=== PATIENT | female | born 1995 | race Caucasian/White ===

== ENCOUNTER 2018-02-14 07:49 | Emergency (ER) | payer OTHER, SELFPAY ==
[2018-02-14 07:49] VITALS: BP 124/71; PULSE 74; RESP 16; TEMP 36.8; O2SAT 99; BMI 20.7
--- NOTE | 2018-02-14 08:11 | CT_ITS ---
STUDY: CT ABDOMEN AND PELVIS WITH CONTRAST REASON FOR EXAM: Female, 22 years old. 24 hour history of right lower quadrant pain. RADIATION DOSAGE (If Supplied By Facility): CTDIvol = ( 10.22 ) mGy, DLP = ( 316.3 ) mGycm TECHNIQUE: Transaxial images were obtained from the dome of the diaphragm to the symphysis pubis without oral contrast. 100 ml of Isovue 300 contrast was administered. Sagittal and coronal images were reconstructed. Individualized dose optimization techniques were used for this CT. COMPARISON: None. FINDINGS: The visualized lung bases are unremarkable. The visualized portions of the heart are within normal limits. Normal liver. Normal gallbladder and extrahepatic biliary system. Normal spleen. Normal pancreas. Normal bilateral adrenal glands. Normal right kidney. Normal left kidney. Normal visualized stomach. Normal small intestine. Normal colon. The appendix is visualized and appears normal. The appendix is visualized on axial images 76 through 79. Small lymph nodes are seen in the mesentery in the right lower quadrant suggestive of mesenteric adenitis. Normal abdominal aorta. Normal inferior vena cava. Normal retroperitoneum. Normal urinary bladder. Small follicles in both ovaries. Normal abdominal wall. Normal osseous structures. CT/Abdomen/Pelvis W IV Cont ONLY IMPRESSION: Findings suggest some mesenteric lymphadenitis. Electronically Signed: Martín Todd MD at 10:02 EDT Tel [phone], Service support ,
--- NOTE | 2018-02-14 08:18 | ED.DCSUM_ITS ---
- ER Visit Summary Date of Service: 02/14/18 Chief Complaint: Right lower quadrant abdominal pain History of Present Illness: The patient is a 22 F past medical or surgical history. Currently on no medications. Patient states last evening around 9 PM she started having right lower quadrant abdominal pain. Associated nausea but no vomiting. No diarrhea or fever. No constipation or dysuria. She has had some mild chills. Currently she is on her menstrual cycle. Denies any discharge.. No trauma. No history of similar pain. Physical Examination: Well-appearing young female. Vital signs are stable and afebrile. She does not look septic or toxic. She is not dehydrated. H EENT exam unremarkable. Lungs clear to auscultation bilaterally. Heart regular rhythm no murmur. Abdomen is soft. Nondistended normal bowel sounds. No hernias or masses. Mild tenderness with deep palpation in the right lower quadrant. Both the right upper and left side of the abdomen are unremarkable. Currently no peritoneal signs. Positive bowel sounds. Moving all 4 extremities. Back nontender. Neurologically awake alert with no focal deficits. Test Results: CBC normal white count of 8. Chemistries normal. UA normal. Serum test negative. CT abdomen pelvis was done with IV contrast only the appendix is visualized and appears normal. There is mesenteric adenitis. Read by the radiologist and reviewed by me. Emergency Department Course and Treatment: Patient with abdominal pain in the right lower quadrant. Differential would include appendicitis versus UTI but she has no urinary symptoms. Also could be secondary to her menstrual cycle or an ovarian cyst. Clinically I do not feel this is a kidney stone. Currently patient does not want any medications for pain or nausea. On repeat exam patient is doing well at 10:10 AM. Abdomen is benign. She denied discussed all test results that she is comfortable being discharged home. Treatment Plan: Tylenol and/or Motrin for pain. Return if feeling worse. Disposition: Charge Impression: Acute right lower quadrant abdominal pain secondary to mesenteric adenitis This note was generated with [employer] dictation software. It may contain incorrect words, spelling, and punctuation that were not noted in review of the chart prior to signing ED Disposition - Plan for ED Patient: Chief Complaint: Abd Pain Referrals: [facility] Doctor,Out of [Primary Care Provider] -
[2018-02-14 08:46] LABS: Bacteria 0 SEEN /hpf (None Seen); Mucous, Urine 0 SEEN /hpf (<or=2+); White Blood Cells 0 SEEN /hpf (0-5)
[2018-02-14 08:47] LABS: Color, Urine Yellow (Yellow); Glucose, Dipstick Normal (Normal); Ketone-Dipstick Negative (Negative); Leukocyte Esterase-Dipstick Negative /ul (Negative); Nitrite-Dipstick Negative (Negative); Occult Blood-Urine 10 /ul (Negative); Protein-Dipstick Negative (Negative); Specific Gravity, Urine 1.005 (1.002-1.030); Urine Bilirubin Dipstick Negative (Negative); Urine Clarity Clear (Clear); Urine Urobilinogen Normal (Normal)
[2018-02-14] MEDS: 0.9% Normal Saline 1,000 ML 1000 ML IV (08:51)
[2018-02-14 08:56] LABS: Absolute Lymphocyte Count 0.78 X10^3/ul (0.83-4.51); Absolute Neutrophil Count 6.9 X10^3/uL (2.0-7.7); Basophil# 0.01 X10^3/uL; Basophil% 0.1 % (0-1); Eosinophil# 0.02 X10^3/uL; Eosinophils% 0.2 % (0-5); Hematocrit 38.5 % (37-47); Hemoglobin 12.9 g/dl (12.0-15.0); Lymphocyte # 0.78 X10^3/ul (4.0); Lymphocyte % 9.6 % (19-41); Mean Corp Hgb Conc 33.5 g/gl (32-36); Mean Corpuscular Hgb 27.8 pg (27.0-32.0); Mean Platelet Vol. 9.6 fl (6.2-12.0); Monocyte# 0.36 X10^3/uL; Monocyte% 4.4 % (0-10); Neutrophil # 6.94 X10^3/uL (2.7-7.7); Neutrophil % 85.6 % (47-70); Platelet Count 213 K/mm3 (150-450); RBC Distribution Width CV 13.3 % (11.6-14.6); RBC Distribution Width SD 40.4 fl (35.1-43.9); Red Blood Count 4.64 M/mm3 (4.2-5.4); White Blood Count 8.1 K/mm3 (4.4-11.0)
[2018-02-14 08:59] LABS: Anion Gap 10 (5-15); BUN 11 mg/dL (7-18); BUN/Creat Ratio 12.8 RATIO (10-20); Calcium,Total 8.8 mg/dL (8.5-10.1); Chloride 106 mmol/L (98-107); Creatinine, Serum 0.86 mg/dL (0.55-1.02); EST Glomerular Filtration Rate 89 mL/min (>60); Est Glom Filt Rate - Afr Amer 108 mL/min (>60); Estimated Creatinine Clearance 78.74 ml/min; Glucose 90 mg/dL (74-106); POSITIVE COUNT NO; POSITIVE DIFFERENTIAL NO; POSITIVE MORPHOLOGY NO; Potassium 3.8 mmol/L (3.5-5.1); Sodium Level 142 mmol/L (136-145)
[2018-02-14 09:02] LABS: Red Blood Cells-Urine 0-5 SEEN /hpf (0-5); Squamous Epithelial Cells - UA 0-5 SEEN /hpf (5-10)
[2018-02-14 09:28] LABS: Pregnancy, Serum, hCG Quali. NEGATIVE Negative (0-9 Nonpreg)
--- NOTE | 2018-02-14 10:21 | ED.DEP ---
ED Disposition - Plan for ED Patient: Disposition: Home or Assisted Living Chief Complaint: Abd Pain Instructions: ED Adenitis Mesenteric Referrals: [facility] Doctor,Out of [Primary Care Provider] - As Needed Additional Instructions: Tylenol and/or Motrin for pain. This should progressively get better. Return if feeling worse.
[2018-02-14 10:35] VITALS: BP 110/67; PULSE 88; RESP 16; O2SAT 98
== END 2018-02-14 10:36 | disposition home or self-care (01) ==
PROVIDERS: Emergency Provider Emergency Medicine
DX: I88.0 Nonspecific mesenteric lymphadenitis (principal); R10.31 Right lower quadrant pain
CPT/HCPCS: 74177; 80048; 81001; 84703; 85025; 96360; 96361; 99283; J7030; Q9967; A4216